=== PATIENT | female | born 1985 | race Two or more races ===

== ENCOUNTER 2019-02-15 10:07 | Outpatient (RCR) | payer OTHER ==
[~2019-02-15] VITALS: Ht 147.3 cm; Wt 68.0 kg
[2019-02-17] MEDS ORDERED: Kenalog-10 5ml Inj ONE (06:00)
[2019-02-17] MEDS ORDERED: Kenalog-10 5ml Inj IARTIC ONE (08:45)
== END 2019-03-01 | disposition home or self-care (01) ==
LOC: WCC 10:07
DX: T22.23 Burn of second degree of upper arm (principal); T22.2 Burn of second degree of shoulder and upper limb, except wrist and hand; T22.212S Burn of second degree of left forearm, sequela; T20.2 Burn of second degree of head, face, and neck; X10.2XXS Contact with fats and cooking oils, sequela
CPT/HCPCS: 11900; J3301